=== PATIENT | male | born 1935 | race Caucasian/White ===

== ENCOUNTER 2019-03-15 01:17 | Emergency (ER) | payer MEDICARE, OTHER ==
[~2019-03-15] VITALS: Ht 180.3 cm; Wt 56.2 kg
[2019-03-15 02:04] LABS: Basophils # (auto) 0.1 uL; Basophils % (auto) 0.5 % (0.0-2.0); Eosinophils # (auto) 0 uL; Eosinophils % (auto) 0.1 % (0.0-7.0); Hematocrit 34.5 % (41.0-53.0); Hemoglobin 11.5 g/dL (13.5-17.5); Lymphocytes # (auto) 1.2 uL; Lymphocytes % (auto) 8.6 % (10.0-50.0); Mean Corpuscular Hemoglobin 31.3 pg (28.0-32.0); Mean Corpuscular Hgb Conc. 33.4 g/dL (32.0-36.0); Mean Corpuscular Volume 93.6 fL (80.0-100.0); Monocytes # (auto) 0.9 uL; Monocytes % (auto) 6.4 % (0.0-12.0); Neutrophils # (auto) 11.7 uL; Neutrophils % (auto) 84.4 % (37.0-80.0); Nucleated Red Blood Cells % 0.1 %; Platelet Count (auto) 182 10^3/uL (140-450); Red Blood Cells 3.69 10^6/uL (4.5-5.90); Red Cell Distribution Width 16.3 % (11.8-14.3); White Blood Cell 13.8 10^3/uL (4.4-10.8)
[2019-03-15 02:18] LABS: INR 1.03 (0.9-1.15); Partial Thromboplastin Time 23.4 sec (23.64-32.05)
[2019-03-15 02:21] LABS: Albumin 3.8 g/dL (3.4-5.0); BUN/Creatinine Ratio 18.9; Calcium 9.6 mg/dL (8.5-10.1); Potassium 3.6 mmol/L (3.5-5.1)
[2019-03-15 02:24] LABS: Bilirubin, Total 0.6 mg/dL (0.2-1.0); Total Protein 7.4 g/dL (6.4-8.2)
[2019-03-15] MEDS ORDERED: chlorproMAZINE HCL 25 MG/1 ML AMP IM ONE (02:45)
[2019-03-15] MEDS ORDERED: HALOPERIDOL LACTATE 5 MG/ML INJ VIAL IM ONE (03:15)
[2019-03-15] MEDS ORDERED: HYDROmorphone HCL 2 MG/ML VL IV ONE (04:15)
[2019-03-15] MEDS ORDERED: ONDANSETRON HCL 4 MG/2 ML VIAL IV ONE (04:15)
[2019-03-15 06:13] LABS: Urine Amorphous Crystal FEW /hpf (None Seen); Urine Bacteria FEW /hpf (None Seen); Urine Blood Negative /uL (Negative); Urine Hyaline Cast FEW /lpf (0 - 2); Urine Specific Gravity 1.021 (1.001-1.035); Urine WBC 2 /hpf (0 - 3)
[2019-03-15] MEDS ORDERED: LORazepam 2MG/ML-1ML VIAL IV ONE (06:15)
[2019-03-15] MEDS ORDERED: FLUMAZENIL 0.1 MG/ML INJ 10ML MDV IV ONE (09:45)
[2019-03-15 09:50] VITALS: BP 180/76
[2019-03-16] MEDS ORDERED: FURO40TA4 PO (14:54)
[2019-03-16] MEDS ORDERED: POTA10TA51 PO (14:54)
[2019-03-16] MEDS ORDERED: FERR1TAB36 PO (14:54)
[2019-03-16] MEDS ORDERED: ROSU10TA16 PO (14:54)
[2019-03-16] MEDS ORDERED: MEMA1TAB2 PO (14:54)
[2019-03-16] MEDS ORDERED: LEVA1NEB5 IN (14:54)
[2019-03-16] MEDS ORDERED: ESOM40CA39 PO (14:54)
[2019-03-16] MEDS ORDERED: TELM80TA PO (14:57)
== END 2019-03-15 09:55 | disposition left against medical advice (07) ==
LOC: ER 01:20
DX: K92.2 Gastrointestinal hemorrhage, unspecified (principal); E86.0 Dehydration; R06.6 Hiccough; I11.0 Hypertensive heart disease with heart failure; I50.9 Heart failure, unspecified; E78.5 Hyperlipidemia, unspecified; Z95.1 Presence of aortocoronary bypass graft; Z88.2 Allergy status to sulfonamides; Z88.6 Allergy status to analgesic agent
CPT/HCPCS: 36415; 74176; 80053; 81001; 83880; 84484; 85025; 85610; 85730; 93005; J2405